=== PATIENT | male | born 1960 | race Asian ===

== ENCOUNTER → 2019-12-27 | Emergency (ER) | payer MEDICAID, OTHER ==
[~2019-12-27] VITALS: Ht 177.8 cm; Wt 79.4 kg
[~2019-12-27] MED LIST: ASPirin 81 mg TAB PO ONE; SODIUM CHLORIDE 0.9% 1,000 ML IV ONE; cloNIDine HCL 0.1 MG TAB ONE; cloNIDine HCL 0.1 MG TAB PO ONE
[2019-12-27 13:02] LABS: Basophils # (auto) 0.1 10 ^3/uL (0-0.2); Basophils % (auto) 1.2 % (0.0-2.0); Eosinophils # (auto) 0.2 10 ^3/uL (0-0.8); Eosinophils % (auto) 4.4 % (0.0-7.0); Hematocrit 45.8 % (41.0-53.0); Hemoglobin 15.1 g/dL (13.5-17.5); Lymphocytes # (auto) 1.5 10 ^3/uL (0.4-5.4); Lymphocytes % (auto) 30.9 % (10.0-50.0); Mean Corpuscular Hemoglobin 30.7 pg (28.0-32.0); Mean Corpuscular Volume 93.1 fL (80.0-100.0); Monocytes # (auto) 0.5 10 ^3/uL (0-1.3); Monocytes % (auto) 9.9 % (0.0-12.0); Neutrophils # (auto) 2.6 10 ^3/uL (1.6-8.6); Neutrophils % (auto) 53.6 % (37.0-80.0); Nucleated Red Blood Cells % 0.1 %; Platelet Count (auto) 187 10^3/uL (140-450); Red Blood Cells 4.92 10^6/uL (4.5-5.90); Red Cell Distribution Width 14.3 % (11.8-14.3); White Blood Cell 4.9 10^3/uL (4.4-10.8)
[2019-12-27 13:14] LABS: Albumin 3.8 g/dL (3.4-5.0); Anion Gap 6 (5-15); Blood Urea Nitrogen 16 mg/dL (7-18); Calcium 8.3 mg/dL (8.5-10.1); Carbon Dioxide 27 mmol/L (21-32); Chloride 102 mmol/L (98-107); Glucose 96 mg/dL (74-106); Magnesium 2.1 mg/dL (1.6-2.6); Potassium 3.5 mmol/L (3.5-5.1); Sodium 135 mmol/L (136-145)
[2019-12-27 13:19] LABS: Alanine Aminotransferase 71 U/L (16-61); Alkaline Phosphatase 64 U/L (45-117); Aspartate Aminotransferase 36 U/L (15-37); BUN/Creatinine Ratio 18.6; Bilirubin, Total 0.4 mg/dL (0.2-1.0); GFR African American 117 mL/min; GFR Non-African American 96 mL/min; Total Protein 7.5 g/dL (6.4-8.2)
[2019-12-27 13:41] LABS: Urine WBC None Seen /hpf (0 - 3)
[2019-12-27 13:55] LABS: Urine Bacteria NONE SEEN /hpf (None Seen); Urine Blood Negative /uL (Negative); Urine Specific Gravity 1.006 (1.001-1.035)
[2019-12-27 14:35] VITALS: BP 121/67
== END | disposition home or self-care (01) ==
LOC: ER 12:26 → EDBD 12:26
DX: I10 Essential (primary) hypertension (principal)
CPT/HCPCS: 36415; 71046; 80053; 81001; 83735; 84443; 84484; 85025; 93005